=== PATIENT | female | born 1985 | race African-American/Black ===

== ENCOUNTER 2025-01-09 16:39 | Emergency (ER) | payer BC, OTHER ==
[~2025-01-09] VITALS: Ht 162.6 cm; Wt 72.6 kg
[2025-01-09 17:52] LABS: BASOPHILS # (AUTO) 0.1 K/uL (0.0-0.2); BASOPHILS % (AUTO) 0.9 % (0.0-2.0); EOSINOPHILS # (AUTO) 0.1 K/uL (0.0-0.7); EOSINOPHILS % (AUTO) 0.8 % (0.0-6.0); HEMATOCRIT 41 % (33-45); HEMOGLOBIN 13.8 g/dL (11.5-14.8); LYMPHOCYTES # (AUTO) 2.8 K/uL (0.8-4.8); LYMPHOCYTES % (AUTO) 37.6 % (20.0-44.0); MEAN CORPUSCULAR HEMOGLOBIN 30 PG (26.0-33.0); MEAN CORPUSCULAR HGB CONC 34 g/dl (31.0-36.0); MEAN CORPUSCULAR VOLUME 90 fL (82-100); MONOCYTES # (AUTO) 0.6 K/uL (0.1-1.30); MONOCYTES % (AUTO) 7.7 % (2.0-12.0); NEUTROPHILS # (AUTO) 3.9 K/uL (1.8-8.9); PLATELET COUNT (AUTO) 294 K/uL (150-450); RED BLOOD CELL COUNT(AUTO) 4.55 MIL/uL (4.0-5.2); RED CELL DISTRIBUTION WIDTH 14.2 % (11.5-15.0); WHITE BLOOD COUNT (AUTO) 7.4 K/uL (4.3-11.0)
[2025-01-09 18:11] LABS: LACTIC ACID 2.5 mmol/L (0.4-2.0)
[2025-01-09 18:33] LABS: CALCIUM, SERUM 9.9 mg/dL (8.5-10.1); CARBON DIOXIDE 20 mmol/L (21-32); CHLORIDE 103 mmol/L (98-107); CREATININE 0.9 mg/dL (0.6-1.3); GLUCOSE 107 mg/dL (74-106); POTASSIUM 3.3 mmol/L (3.5-5.1); SODIUM SERUM 134 mmol/L (136-145); UREA NITROGEN, BLOOD 18 mg/dL (7-18)
[2025-01-09 18:46] LABS: NT-PRO BNP 8 pg/mL (0-125)
[2025-01-09 19:52] LABS: BILIRUBIN,DIRECT 0.1 mg/dL (0.0-0.2); BILIRUBIN,TOTAL 0.3 mg/dL (0.2-1.0)
[2025-01-09] MEDS: IV NS 0.9% 1,000 ML BAG IV ONE (19:58)
[2025-01-09 20:45] LABS: LACTIC ACID REFLEX 2.3 mmol/L (0.4-1.9)
[2025-01-09] MEDS ORDERED: AZIT250T13 PO (20:51)
[2025-01-09 21:33] VITALS: BP 118/77; TEMP 97.6; O2SAT 100
== END 2025-01-09 21:33 | disposition home or self-care (01) ==
LOC: ER 16:39
DX: F32.A Depression, unspecified (principal); R06.02 Shortness of breath; R00.2 Palpitations; F12.90 Cannabis use, unspecified, uncomplicated; Z60.2 Problems related to living alone
CPT/HCPCS: 99285; 96360; 71045; 93005; 82247; 82248; 84145; 85025; 80048; 83605 ×2; 85378; 36415; 83880; J7030

== ENCOUNTER 2025-08-02 02:55 | Emergency (ER) | payer BC ==
[~2025-08-02] VITALS: Ht 162.6 cm; Wt 72.6 kg
[~2025-08-02 02:55] MED LIST: AZIT250T13 PO
[2025-08-02] MEDS: ONDANSETRON 4 MG TAB.RAPDIS PO ONE (03:30)
[2025-08-02] MEDS: AMOX/CLAVULANATE 875 MG TABLET PO ONE (03:30)
[2025-08-02] MEDS ORDERED: AMOX/CLAVULANATE 875 MG TABLET ONE (03:30)
[2025-08-02] MEDS ORDERED: ONDANSETRON 4 MG TAB.RAPDIS ONE (03:30)
[2025-08-02] MEDS: NAPROXEN 250 MG TABLET PO ONE (03:30)
[2025-08-02] MEDS ORDERED: NAPROXEN 250 MG TABLET ONE (03:30)
[2025-08-02 03:38] LABS: PLATELET COUNT (AUTO) 261 K/uL (150-450); RED BLOOD CELL COUNT(AUTO) 4.16 MIL/uL (4.0-5.2); RED CELL DISTRIBUTION WIDTH 14.1 % (11.5-15.0); WHITE BLOOD COUNT (AUTO) 5.6 K/uL (4.3-11.0)
[2025-08-02 03:45] LABS: CALCIUM, SERUM 8.8 mg/dL (8.5-10.1); CREATININE 0.9 mg/dL (0.6-1.3); SODIUM SERUM 142.0 mmol/L (136-145); UREA NITROGEN, BLOOD 12.0 mg/dL (7-18)
[2025-08-02] MEDS ORDERED: AMOX-430 PO (03:47)
[2025-08-02 03:50] LABS: ASPARTATE AMINOTRANSFERASE 19.0 U/L (15-37); TOTAL PROTEIN, SERUM 7.5 g/dL (6.4-8.2)
[2025-08-02 04:07] VITALS: BP 118/70; TEMP 98.6; O2SAT 100
[2025-08-02 05:05] LABS: APPEARANCE,URINE CLEAR (CLEAR); BLOOD, URINE 1+ Ery/uL (NEGATIVE); LEUKOCYTE ESTERASE ,URINE NEGATIVE (NEGATIVE); NITRITE, URINE NEGATIVE (NEGATIVE); UGLUCOSE NEGATIVE (NEGATIVE)
[2025-08-02 05:06] LABS: PREGNANCY TEST URINE QUAL NEGATIVE (NEGATIVE)
[2025-08-02 05:15] LABS: ADD URINE CULTURE NO; SQUAMOUS EPITHELIAL CELL,UR Moderate /HPF (None Seen)
[2025-08-02 05:16] LABS: YEAST,URINE None Seen /HPF (None Seen)
== END 2025-08-02 04:07 | disposition home or self-care (01) ==
LOC: ER 02:59
DX: K02.9 Dental caries, unspecified (principal); F12.90 Cannabis use, unspecified, uncomplicated; R11.0 Nausea; R42 Dizziness and giddiness; Z79.899 Other long term (current) drug therapy
CPT/HCPCS: 99284; 93005; 85025; 83735; 84703; 81001; 36415; 80053; Q0162